=== PATIENT | female | born 1955 | race Caucasian/White ===

== ENCOUNTER 2020-11-23 02:04 | Emergency (ER) | payer SELFPAY ==
[~2020-11-23] VITALS: Ht 165.1 cm; Wt 86.2 kg
--- NOTE | 2020-11-23 02:10 | NUR ---
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 PER RA, REC'D 3 SPRAY NITRO EN ROUTE. PT AWAKE, ESTONIAN SPEAKING. NOTED HYPERTENSION ON ARRIVAL. RESPIRATIONS EVEN AND UNLABORED. NO ACUTE DISTRESS NOTED AT THIS TIME. 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
--- NOTE | 2020-11-23 02:23 | NUR ---
CUSTOMER PROFESSIONAL AT BEDSIDE FOR BLOOD DRAW
[2020-11-23] MEDS ORDERED: ACETAMINOPHEN ES 500 MG TABLET ONE (02:25)
[2020-11-23] MEDS ORDERED: NITROGLYCERIN 0.4 MG/TAB BOTTLE ONE (02:25)
[2020-11-23] MEDS ORDERED: NITROGLYCERIN PACKET 1 GM PACKET ONE (02:25)
--- NOTE | 2020-11-23 02:32 | NUR ---
KIAN (SON) CONTACT INFORMATION: [phone] DR. DEL CASTILLO SPEAKING WITH SON VIA TELEPHONE REGARDING PLAN OF CARE/TRANSLATION
[2020-11-23 02:35] LABS: BASOPHILS # (AUTO) 0.1 /CMM (0.0-0.2); BASOPHILS % (AUTO) 1.3 % (0.0-2.0); EOSINOPHILS % (AUTO) 1.3 % (0.0-6.0); HEMATOCRIT 39 % (33-45); HEMOGLOBIN 12.8 g/dL (11.5-14.8); LYMPHOCYTES # (AUTO) 2.1 /CMM (0.8-4.8); MEAN CORPUSCULAR HGB CONC 33 g/dl (31.0-36.0); MEAN CORPUSCULAR VOLUME 91 fL (82-100); MONOCYTES # (AUTO) 0.6 /CMM (0.1-1.30); MONOCYTES % (AUTO) 7.9 % (2.0-12.0); NEUTROPHILS # (AUTO) 4.4 /CMM (1.8-8.9); NEUTROPHILS % (AUTO) 60.5 % (43.0-81.0); PLATELET COUNT (AUTO) 239 /CMM (150-450); RED BLOOD CELL COUNT(AUTO) 4.29 MIL/uL (4.0-5.2); WHITE BLOOD COUNT (AUTO) 7.3 K/uL (4.3-11.0)
--- NOTE | 2020-11-23 02:39 | NUR ---
RADIOLOGY AT BEDSIDE FOR CXR
[2020-11-23] MEDS: NITROGLYCERIN 0.4 MG/TAB BOTTLE SL ONE (02:40)
[2020-11-23] MEDS: ACETAMINOPHEN ES 500 MG TABLET PO ONE (02:40)
[2020-11-23] MEDS: NITROGLYCERIN PACKET 1 GM PACKET TD ONE (02:42)
[2020-11-23 02:43] LABS: CALCIUM, SERUM 8.5 mg/dL (8.5-10.1); CARBON DIOXIDE 28 mmol/L (21-32); CHLORIDE 106 mmol/L (98-107); CREATININE 0.7 mg/dL (0.6-1.3); GLUCOSE 121 mg/dL (74-106); POTASSIUM 3.8 mmol/L (3.5-5.1); SODIUM SERUM 143 mmol/L (136-145); UREA NITROGEN, BLOOD 11 mg/dL (7-18)
[2020-11-23 02:56] LABS: ALANINE AMINOTRANSFERASE 21 U/L (12-78); ALBUMIN 3.4 g/dL (3.4-5.0); ALKALINE PHOSPHATASE 70 U/L (46-116); ASPARTATE AMINOTRANSFERASE 13 U/L (15-37); B-TYPE NATRIURETIC PEPTIDE 105 PG/ML (0-125); BILIRUBIN,DIRECT 0.1 mg/dL (0.0-0.2); BILIRUBIN,TOTAL 0.3 mg/dL (0.2-1.0); TOTAL PROTEIN, SERUM 6.8 g/dL (6.4-8.2)
[2020-11-23 03:00] LABS: D-DIMER 0.89 mg/L(FEU (0.17-0.50)
[2020-11-23] MEDS ORDERED: IV NS 0.9% 250 ML IV ONE (03:28)
[2020-11-23] MEDS ORDERED: CT SWABBABLE VALVE TRANS SET 1 EA INFUS.SET MC ONE (03:28)
[2020-11-23] MEDS ORDERED: IOHEXOL-350 100 ML VIAL IV ONE (03:28)
--- NOTE | 2020-11-23 03:35 | NUR ---
PT BROUGHT BY RADIOLOGY TO CT
--- NOTE | 2020-11-23 05:30 | NUR ---
DISTRIBUTION CLERK AT BEDSIDE FOR BLOOD DRAW
[2020-11-23] MEDS ORDERED: AMLO2.5T2 PO (05:33)
[2020-11-23 07:16] VITALS: BP 149/85
--- NOTE | 2020-11-23 07:16 | NUR ---
Patient discharged to home in stable condition. Written and verbal after care instructions given. Patient verbalizes understanding of instruction.IV removed. Catheter intact and site benign. Pressure and 4x4 applied to site. No bleeding noted. Pt ambulatory with a steady gait
== END 2020-11-23 07:16 | disposition home or self-care (01) ==
LOC: ER 02:04
DX: R07.89 Other chest pain (principal); I10 Essential (primary) hypertension; Z79.899 Other long term (current) drug therapy
CPT/HCPCS: 36415; 71045; 71275; 80048; 80076; 83880; 84484 ×2; 85025; 85378; 85730; 93005; 99285; J7050; Q9967